=== PATIENT | female | born 1945 | race Caucasian/White ===

== ENCOUNTER 2017-03-14 16:14 | Inpatient (IN) | payer MEDICARE, BC ==
[~2017-03-14] VITALS: Ht 160 cm; Wt 58.5 kg
--- NOTE | 2017-03-14 15:14 | NUR ---
RECEIVED PATIENT FROM ER VIA GURNEY WITH VANCOMYCIN 1G INFUSING. PT IS ALERT, RESPONSIVE, IN NO ACUTE DISTRESS. PT IS ADMITTED TO TELE UNDER THE CARE OF DR. EID. BELONGING LIST DONE. ADMISSION PROCESS AND CARE PLAN INITIATED. NEW ADMISSION ORDERS DONE BY DR. EID. SAFETY MEASURES IN PLACE, BED ALARM ON. WILL CONTINUE TO MONITOR. Addendum: 03/15/17 at 0220 by OLAYINKA LANIER RN CORRECTION: TIME SHOULD BE 21:15 NOT 15:14
[2017-03-14] MEDS ORDERED: LUTE6CAP PO (17:06)
[2017-03-14] MEDS ORDERED: DONE10TA44 PO (17:06)
[2017-03-14] MEDS ORDERED: NAPR500T3 PO (17:06)
[2017-03-14] MEDS ORDERED: LISI-607 PO (17:06)
[2017-03-14] MEDS ORDERED: ALEN70TA45 PO (17:06)
[2017-03-14] MEDS ORDERED: CHOL100045 PO (17:06)
[2017-03-14] MEDS ORDERED: CALC500T55 PO (17:06)
[2017-03-14] MEDS ORDERED: ASPI81TA44 PO (17:06)
[2017-03-14] MEDS ORDERED: SIMV40TA5 PO (17:06)
[2017-03-14] MEDS ORDERED: LEVO75TA7 PO (17:06)
[2017-03-14] MEDS ORDERED: FLUO40CA49 PO (17:06)
[2017-03-14] MEDS ORDERED: CARB-93 PO (17:06)
--- NOTE | 2017-03-14 17:24 | NUR ---
71 years old female from long term presents to er c/o multiple falls, gen weakness denies pain.
[2017-03-14] MEDS ORDERED: ACETAMINOPHEN 650 MG/20.3 ML LIQUID UDC PO ONE (17:29)
[2017-03-14 17:59] LABS: BASOPHILS # (AUTO) 0.2 K/uL (0.0-8.0); BASOPHILS % (AUTO) 2.6 % (0.0-2.0); EOSINOPHILS % (AUTO) 0.5 % (0.0-7.0); HEMATOCRIT 38.2 % (37-47); HEMOGLOBIN 12.8 G/DL (12.0-16.0); LYMPHOCYTES # (AUTO) 0.6 K/UL (0.8-4.8); LYMPHOCYTES % (AUTO) 9.5 % (20.5-51.5); MEAN CORPUSCULAR HEMOGLOBIN 33.6 UUG (27.0-31.0); MEAN CORPUSCULAR HGB CONC 34 g/dL (32.0-37.0); MEAN CORPUSCULAR VOLUME 100.3 FL (81.0-99.0); MONOCYTES # (AUTO) 0.6 K/UL (0.1-1.30); MONOCYTES % (AUTO) 8.8 % (0.0-11.0); NEUTROPHILS # (AUTO) 4.9 K/UL (1.8-8.9); NEUTROPHILS % (AUTO) 78.6 % (38.5-71.5); PLATELET COUNT (AUTO) 154 K/UL (150-450); RED BLOOD CELL COUNT(AUTO) 3.81 MIL/UL (4.2-5.4); WHITE BLOOD COUNT (AUTO) 6.3 K/UL (4.0-11.2)
[2017-03-14] MEDS ORDERED: ACETAMINOPHEN 650 MG/20.3 ML LIQUID UDC ONE (18:00)
[2017-03-14 18:01] LABS: CARBON DIOXIDE 29 mmol/L (21-32); CHLORIDE 98 mmol/L (98-107); CREATININE 0.9 mg/dL (0.6-1.3); GLUCOSE 93 mg/dL (74-106); POTASSIUM 3.9 mmol/L (3.5-5.1); UREA NITROGEN, BLOOD 28 mg/dL (7-18)
[2017-03-14 18:07] LABS: ALANINE AMINOTRANSFERASE 12 U/L (14-59); ALKALINE PHOSPHATASE 51 U/L (50-136); ASPARTATE AMINOTRANSFERASE 34 U/L (15-37); BILIRUBIN,TOTAL 0.9 mg/dL (0.2-1.0); CREATINE KINASE, TOTAL 276 U/L (26-192); TOTAL PROTEIN, SERUM 5.8 g/dL (6.4-8.2)
--- NOTE | 2017-03-14 18:44 | NUR ---
pt returns to x-ray no acute changes.
[2017-03-14] MEDS ORDERED: VANCOMYCIN IV 1,000 MG in IV DEXTROSE 5% 250 ML IV ONE (19:45)
[2017-03-14] MEDS ORDERED: LEVOFLOXACIN 750MG/D5W 750 MG in PREMIXED 1 EACH IV SCH (19:45)
[2017-03-14] MEDS ORDERED: PIPERACILLIN/TAZO 4.5 GM VIAL IV ONE (20:01)
[2017-03-14] MEDS ORDERED: LEVOFLOXACIN 750MG/D5W 150 ML IV ONE (20:02)
[2017-03-14] MEDS ORDERED: VANCOMYCIN IV 200 ML ONE (20:02)
--- NOTE | 2017-03-14 20:02 | NUR ---
Wilfrido Carrero MAGAZINE EDITOR into eval Patient
[2017-03-14 20:04] LABS: *BILIRUBIN,URIN NEGATIVE (NEGATIVE); *BLOOD, URINE NEGATIVE (NEGATIVE); *CLARITY,URINE CLEAR (CLEAR); *COLOR,URINE YELLOW (YELLOW); *KETONES,URINE 1+ (NEGATIVE); *PROTEIN,URINE TRACE (NEGATIVE); *UROBILINOGEN,URINE 0.2 E.U./dl (NORMAL); LEUKOCYTE ESTERASE ,URINE NEGATIVE (NEGATIVE); NITRITE, URINE NEGATIVE (NEGATIVE); UGLUCOSE NEGATIVE (NEGATIVE)
[2017-03-14 20:12] LABS: BACTERIA,URINE NONE SEEN /HPF (NONE SEEN); RBC,URINE 0-3 /HPF (0-3); WBC,URINE 0-3 /HPF (0-3)
[2017-03-14 20:13] LABS: SQUAMOUS EPITHELIAL CELL,UR FEW /HPF (NONE SEEN)
[2017-03-14] MEDS: PIPERACILLIN SODIUM/TAZOBACTAM 4.5 G in IV DEXTROSE 5% 50 ML IV SCH ×2 (20:13→22:00)
[2017-03-14] MEDS ORDERED: IV NS 1000 ML 1,000 ML IV PRN (20:24)
[2017-03-14] MEDS ORDERED: NAPROXEN 500 MG TABLET PO PRN (20:30)
[2017-03-14] MEDS ORDERED: Z GUARD REMEDY PASTE 57 GM TUBE TOP PRN (20:30)
[2017-03-14] MEDS ORDERED: ACETAMINOPHEN 325 MG TABLET PO PRN (20:30)
[2017-03-14] MEDS ORDERED: HYDROCODONE/APAP 5-325MG TABLET PO PRN (20:30)
[2017-03-14] MEDS ORDERED: ONDANSETRON 4 MG/2 ML VIAL IV PRN (20:30)
[2017-03-14] MEDS ORDERED: MAGNESIUM HYDROXIDE 30 ML LIQUID UDC PO PRN (20:30)
[2017-03-14] MEDS ORDERED: LEVOFLOXACIN 500 MG/D5W 500 MG in PREMIXED 1 EACH IV SCH (20:30)
--- NOTE | 2017-03-14 21:07 | NUR ---
transfered to [address] [place] [address] via [facility]
--- NOTE | 2017-03-14 21:15 | NUR ---
RECEIVED PATIENT FROM ER VIA GURNEY WITH VANCOMYCIN 1G INFUSING. PT IS ALERT, RESPONSIVE, IN NO ACUTE DISTRESS. PT IS ADMITTED TO TELE UNDER THE CARE OF DR. EID. BELONGING LIST DONE. ADMISSION PROCESS AND CARE PLAN INITIATED. NEW ADMISSION ORDERS DONE BY DR. EID. SAFETY MEASURES IN PLACE, BED ALARM ON. WILL CONTINUE TO MONITOR.
[2017-03-14] MEDS: PIPERACILLIN/TAZOBACTAM/D5W 3.375 G in PREMIXED 1 EACH IV SCH (22:00)
--- NOTE | 2017-03-14 22:00 | NUR ---
Non admin due to antibiotic IV medications already given in ER. Levaquine 750mg, Vancomycin 1 gram, Zosyn 4.5mg given in ER between [id number]. Patient shows no s/s of adverse reaction.
[2017-03-14 22:07] VITALS: BP 135/63
[2017-03-15] VITALS: BP 125/41
[2017-03-15] MEDS ORDERED: PIPERACILLIN/TAZOBACTAM/D5W 50 ML IV ONE (02:43)
[2017-03-15 04:00] VITALS: BP 135/75
[2017-03-15] MEDS: PIPERACILLIN/TAZOBACTAM/D5W 3.375 G in PREMIXED 1 EACH IV SCH ×2 (05:11→13:22)
[2017-03-15] MEDS: PIPERACILLIN SODIUM/TAZOBACTAM 4.5 G in IV DEXTROSE 5% 50 ML IV SCH (05:13)
--- NOTE | 2017-03-15 05:14 | NUR ---
NON ADMIN: DUPLICATE ORDER OF ZOSYN 3.375G AND 4.5G
--- NOTE | 2017-03-15 06:00 | NUR ---
PT SLEPT INTERMITTENTLY, IN NO ACUTE DISTRESS, NO C/O OF PAIN/DISCOMFORT, NO SOB OR CHEST PAIN. PT'S TEMP AT 99F, COOLING MEASURES DONE. ANTIBIOTICS IV ADMINISTERED ORDERED, NO ADVERSE REACTION NOTED. PT KEPT CLEAN/DRY, REPOSITIONED FOR COMFORT. BED ALARM ON, WILL CONTINUE TO MONITOR. Addendum: 03/15/17 at 0702 by OLAYINKA LANIER RN Add: Pt is on tele sinus rhythm. Oral care provided.
[2017-03-15 06:54] LABS: BASOPHILS % (AUTO) 0.8 % (0.0-2.0); EOSINOPHILS # (AUTO) 0.1 K/uL (0.0-0.7); EOSINOPHILS % (AUTO) 1.3 % (0.0-7.0); HEMATOCRIT 36.6 % (31.2-41.9); HEMOGLOBIN 12.5 g/dL (10.9-14.3); LYMPHOCYTES # (AUTO) 0.5 K/uL (20.0-40.0); LYMPHOCYTES % (AUTO) 8.8 % (20.5-51.5); MEAN CORPUSCULAR HEMOGLOBIN 34.2 uug (24.7-32.8); MEAN CORPUSCULAR HGB CONC 34 g/dL (32.3-35.6); MONOCYTES # (AUTO) 0.5 K/uL (2.0-10.0); MONOCYTES % (AUTO) 10.2 % (0.0-11.0); NEUTROPHILS # (AUTO) 4.1 K/uL (1.8-8.9); NEUTROPHILS % (AUTO) 78.9 % (38.5-71.5); PLATELET COUNT (AUTO) 201 K/uL (179-408); RED BLOOD CELL COUNT(AUTO) 3.67 MIL/uL (3.63-4.92); WHITE BLOOD COUNT (AUTO) 5.2 K/uL (3.8-11.8)
[2017-03-15 07:17] LABS: CARBON DIOXIDE 26 mmol/L (21-32); CHLORIDE 103 mmol/L (98-107); CHOLESTEROL 140 mg/dL (<200); CREATININE 0.8 mg/dL (0.6-1.3); GLUCOSE 86 mg/dL (74-106); HDL CHOLESTEROL 83 mg/dL (40-60); MAGNESIUM 1.8 mg/dL (1.8-2.4); PHOSPHOROUS 3.5 mg/dL (2.5-4.9); POTASSIUM 3.7 mmol/L (3.5-5.1); TRIGLYCERIDES 32 MG/DL (30-150); UREA NITROGEN, BLOOD 17 mg/dL (7-18)
[2017-03-15 07:27] LABS: THYROID STIMULATING HORMONE 3.901 mIU/mL (0.358-3.740)
--- NOTE | 2017-03-15 07:45 | NUR ---
Received patient A and O x 4, No acute distress noted. No complaints of pain/discomfort. IV NS at 60 ml/hr on right AC, intact and flowing well. All comfort measures provided. Call light within reach. Will continue to monitor closely
[2017-03-15] MEDS: LISINOPRIL 5 MG TABLET PO SCH (08:29)
[2017-03-15] MEDS: CALCIUM CARBONATE 500 MG TABLET PO SCH ×2 (08:29→17:41)
[2017-03-15] MEDS: ASPIRIN EC 81 MG TABLET.DR PO SCH (08:29)
[2017-03-15] MEDS ORDERED: LUTEIN 6 MG PO SCH (09:00)
[2017-03-15] MEDS: FLUOXETINE HCL 20 MG CAPSULE PO SCH (10:39)
[2017-03-15] MEDS: LEVOTHYROXINE SODIUM 75 MCG TABLET PO SCH (10:39)
[2017-03-15] MEDS: CARBIDOPA/LEVODOPA 25-100MG TABLET PO SCH ×3 (10:39→17:41)
[2017-03-15] MEDS: CHOLECALCIFEROL 1,000 UNIT TABLET PO SCH (11:37)
[2017-03-15 11:56] VITALS: BP 106/50
[2017-03-15] MEDS ORDERED: DONEPEZIL 10 MG TABLET PO SCH (13:33)
[2017-03-15 15:53] VITALS: BP 95/48
[2017-03-15] MEDS: IV NS 1000 ML 1,000 ML IV PRN ×2 (18:26)
[2017-03-15 20:19] VITALS: BP 100/46
[2017-03-15] MEDS: SIMVASTATIN 40 MG TABLET PO SCH (21:52)
[2017-03-16 00:32] VITALS: BP 135/64
[2017-03-16 04:00] VITALS: BP 122/66
--- NOTE | 2017-03-16 05:52 | NUR ---
Patient slept well, in no acute distress. Pt no c/o of SOB, no cough/wheezing, discomfort. VS stable, afebrile. IVF infusing, no infiltration noted. Pt kept clean/dry, repositioned for comfort. All needs attended and met. Bed alarm on. Will continue to monitor.
[2017-03-16] MEDS: LEVOTHYROXINE SODIUM 75 MCG TABLET PO SCH (06:36)
--- NOTE | 2017-03-16 08:00 | NUR ---
awake alert and oriented, denies of pain, no shortness of breath, states slept well last night, tele SR 68, discussed plan of cre- verbalized understanding, safety measures maintained, call light within reach breakfast tray served
[2017-03-16] MEDS: LISINOPRIL 5 MG TABLET PO SCH (08:38)
[2017-03-16] MEDS: ASPIRIN EC 81 MG TABLET.DR PO SCH (08:39)
[2017-03-16] MEDS: FLUOXETINE HCL 20 MG CAPSULE PO SCH (08:39)
[2017-03-16] MEDS: CALCIUM CARBONATE 500 MG TABLET PO SCH ×2 (08:39→16:29)
[2017-03-16] MEDS: CARBIDOPA/LEVODOPA 25-100MG TABLET PO SCH ×3 (08:39→16:29)
[2017-03-16] MEDS: CHOLECALCIFEROL 1,000 UNIT TABLET PO SCH (08:39)
--- NOTE | 2017-03-16 10:30 | NUR ---
ambulated in the hallway with PT- see notes
--- NOTE | 2017-03-16 11:15 | NUR ---
seen by Dr Lugo
[2017-03-16 11:36] VITALS: BP 109/52
--- NOTE | 2017-03-16 12:00 | NUR ---
seen by speech therapist
[2017-03-16] MEDS: IV NS 1000 ML 1,000 ML IV PRN (12:53)
[2017-03-16 15:28] VITALS: BP 104/47
--- NOTE | 2017-03-16 18:28 | NUR ---
resting in bed, kept clean and dry at all times, all needs attended and met
[2017-03-16 20:11] VITALS: BP 100/52
[2017-03-16] MEDS ORDERED: DONEPEZIL 10 MG TABLET PO SCH (21:00)
[2017-03-16] MEDS: SIMVASTATIN 40 MG TABLET PO SCH (21:06)
[2017-03-17] MEDS: IV NS 1000 ML 1,000 ML IV PRN (06:00)
[2017-03-17] MEDS: LEVOTHYROXINE SODIUM 75 MCG TABLET PO SCH (06:00)
--- NOTE | 2017-03-17 06:00 | NUR ---
Patient slept well, no distress, no SOB. No significant change of condition throughout the shift. VS stable, pt remains afebrile. Pt kept clean/dry. Call light within reach. Will continue to monitor.
[2017-03-17 06:24] VITALS: BP 120/46
--- NOTE | 2017-03-17 07:15 | NUR ---
RECEIVED REPORT FROM PARAPROFESSIONAL AIDE NURSE, PATIENT IN BED AWAKE, NO EVIDENCE OF DISTRESS NOTED, BED IN LOW POSITION, SIDE RAILS UP X2. IV NOTED TO BE FOUND INFILTRATED AND LEAKING ON BED.
[2017-03-17] MEDS: FLUOXETINE HCL 20 MG CAPSULE PO SCH (08:44)
[2017-03-17] MEDS: ASPIRIN EC 81 MG TABLET.DR PO SCH (08:44)
[2017-03-17] MEDS: LISINOPRIL 5 MG TABLET PO SCH (08:44)
[2017-03-17] MEDS: CALCIUM CARBONATE 500 MG TABLET PO SCH ×2 (08:44→17:29)
[2017-03-17] MEDS: CHOLECALCIFEROL 1,000 UNIT TABLET PO SCH (08:44)
[2017-03-17] MEDS: CARBIDOPA/LEVODOPA 25-100MG TABLET PO SCH ×3 (08:44→17:30)
[2017-03-17 08:59] VITALS: BP 149/106
[2017-03-17 11:55] VITALS: BP 131/63
[2017-03-17 15:56] VITALS: BP 124/67
--- NOTE | 2017-03-17 17:55 | NUR ---
PATIENT WAS DISCHARGED TO ARU, ALL BELONGINGS ACCOUNTED FOR, DISCHARGE TEACHING PERFORMED AND PATIENT'S [facility] CONTACTED VIA PHONE TO INFORM HER OF HER DISCHARGE FROM THE UNIT. REPORT CALLED TO
[2017-03-21] MEDS ORDERED: ALENDRONATE SODIUM 70 MG TABLET PO SCH (06:00)
== END 2017-03-17 18:00 | DRG 205 ==
LOC: ER 16:15 → TELE 21:01 → MED 03-16 10:05
PROVIDERS: ADMIT Nurse Practitioner Acute Care; ATTEND Nurse Practitioner Acute Care
DX: J98.11 Atelectasis (principal); G93.40 Encephalopathy, unspecified; N17.0 Acute kidney failure with tubular necrosis; E44.0 Moderate protein-calorie malnutrition; E87.1 Hypo-osmolality and hyponatremia; W19.XXXA Unspecified fall, initial encounter; S50.11XA Contusion of right forearm, initial encounter; G20 Parkinson's disease; E03.9 Hypothyroidism, unspecified; Y92.129 Unspecified place in nursing home as the place of occurrence of the external cause; E78.5 Hyperlipidemia, unspecified; Z68.22 Body mass index [BMI] 22.0-22.9, adult; Z66 Do not resuscitate; R26.2 Difficulty in walking, not elsewhere classified; E83.51 Hypocalcemia; E86.1 Hypovolemia; R29.6 Repeated falls; S29.012A Strain of muscle and tendon of back wall of thorax, initial encounter; S39.012A Strain of muscle, fascia and tendon of lower back, initial encounter; Z79.82 Long term (current) use of aspirin; Z79.899 Other long term (current) drug therapy; M19.90 Unspecified osteoarthritis, unspecified site
CPT/HCPCS: 36415; 70030-TC; 71010; 72072; 72100; 73090; 73100; 83735; 84100; 84443; 85025; 85610; 87040; 87086; 92526; 92610; 93005; 93307; 97116; 97530; A4663; J1956; J2543; J3370; J7030; J7060

== ENCOUNTER 2017-03-17 14:43 | Inpatient (IN) | payer MEDICARE, BC ==
[~2017-03-17] VITALS: Ht 160 cm; Wt 59.0 kg
[~2017-03-17 14:43] MED LIST: ALEN70TA45 PO; ASPI81TA44 PO; CALC500T55 PO; CARB-93 PO; CHOL100045 PO; DONE10TA44 PO; FLUO40CA49 PO; LEVO75TA7 PO; LISI-607 PO; LUTE6CAP PO; NAPR500T3 PO; SIMV40TA5 PO
[2017-03-17 19:30] VITALS: BP 118/73
[2017-03-17] MEDS ORDERED: NAPROXEN 500 MG TABLET PO PRN (19:30)
--- NOTE | 2017-03-17 20:00 | NUR ---
Received new admit pt, awake, alert and oriented x3. Able to make needs known. No acute distress noted. No complaints of pain or discomfort. Breathing even and unlabored with normal respirations. Pertinent assessments done. Pictures taken and placed on chart. Med recon done. Safety and fall precautions observed and maintained. Call light placed within reach. All needs attended. will continue to monitor.
[2017-03-17] MEDS: CHOLECALCIFEROL 1,000 UNIT TABLET PO SCH (20:40)
[2017-03-17] MEDS: CALCIUM CARBONATE 500 MG TABLET PO SCH (20:40)
[2017-03-17] MEDS: DONEPEZIL 10 MG TABLET PO SCH (20:41)
[2017-03-17] MEDS: SIMVASTATIN 40 MG TABLET PO SCH (20:41)
[2017-03-17 20:54] VITALS: BP 118/73
[2017-03-17] MEDS ORDERED: Z GUARD REMEDY PASTE 57 GM TUBE TOP PRN (21:30)
--- NOTE | 2017-03-18 05:23 | NUR ---
Patient slept comfortably throughout the shift. No apparent distress noted. No complaints of pain. Call light within reach. Incontinent care rendered. All needs attended.
[2017-03-18] MEDS: LEVOTHYROXINE SODIUM 75 MCG TABLET PO SCH (06:01)
--- NOTE | 2017-03-18 07:00 | NUR ---
Received pt aa/ox3, no acute distress noted. pt denies any pain or discomfort. Right FA peripheral IV intact and patent, no s/s of infection noted. plan of care discussed. Call light and personal belongings within reach. Bed kept low/locked position. Bed alarm on for safety.
[2017-03-18] MEDS: CHOLECALCIFEROL 1,000 UNIT TABLET PO SCH ×2 (08:51→17:20)
[2017-03-18] MEDS: FLUOXETINE HCL 20 MG CAPSULE PO SCH (08:51)
[2017-03-18] MEDS: ASPIRIN EC 81 MG TABLET.DR PO SCH (08:51)
[2017-03-18] MEDS: CALCIUM CARBONATE 500 MG TABLET PO SCH ×2 (08:52→17:20)
[2017-03-18] MEDS: LISINOPRIL 5 MG TABLET PO SCH (08:52)
[2017-03-18] MEDS: CARBIDOPA/LEVODOPA 25-100MG TABLET PO SCH ×3 (08:52→17:20)
[2017-03-18 08:53] VITALS: BP 160/79
[2017-03-18] MEDS ORDERED: LUTEIN 6 MG PO SCH (09:00)
--- NOTE | 2017-03-18 17:48 | NUR ---
NO ACUTE CHANGES NOTED, PT WAS ABLE TO PARTICIPATE WITH THERAPY, CALL LIGHT KEPT WITHIN REACH. PT ENCOURAGED TO USE CALL LIGHT AND CALL FOR ASSISTANCE. PT GOT UP TO THE BATHROOM BY HERSELF X1 TODAY, PT ENCOURAGED TO CALL FOR ASSISTANCE.
--- NOTE | 2017-03-18 20:30 | NUR ---
Received pt on bed alert, awake and oriented x3. Able to make needs known. No signs/symptoms of distress noted. No complaints of pain during this time. Due meds given as ordered, tolerated well. No signs/symptoms of aspiration noted. Vital signs stable. Kept clean, dry and comfortable. Call light placed within reach. All needs anticipated. Will continue to monitor
[2017-03-18] MEDS: DONEPEZIL 10 MG TABLET PO SCH (21:00)
[2017-03-18] MEDS: SIMVASTATIN 40 MG TABLET PO SCH (21:00)
[2017-03-18 21:14] VITALS: BP 117/74
--- NOTE | 2017-03-19 05:51 | NUR ---
Pt slept well during the shift. No untoward signs/symptoms was noted. No complaints of pain or discomfort. Due meds given as ordered, tolerated well. Kept clean, dry and comfortable. Call light within reach. All needs attended.
[2017-03-19] MEDS: LEVOTHYROXINE SODIUM 75 MCG TABLET PO SCH (06:22)
[2017-03-19] MEDS: CARBIDOPA/LEVODOPA 25-100MG TABLET PO SCH ×3 (09:00→17:07)
[2017-03-19] MEDS: FLUOXETINE HCL 20 MG CAPSULE PO SCH (09:01)
[2017-03-19] MEDS: ASPIRIN EC 81 MG TABLET.DR PO SCH (09:01)
[2017-03-19] MEDS: CALCIUM CARBONATE 500 MG TABLET PO SCH ×2 (09:01→17:07)
[2017-03-19] MEDS: CHOLECALCIFEROL 1,000 UNIT TABLET PO SCH ×2 (09:01→17:07)
[2017-03-19] MEDS: LISINOPRIL 5 MG TABLET PO SCH (09:03)
[2017-03-19 09:52] VITALS: BP 155/74
--- NOTE | 2017-03-19 10:05 | NUR ---
patient noted laying in bed, assisted to restroom at this time, no complaints of pain, no signs distress noted, call light in reach.
[2017-03-19] MEDS: DONEPEZIL 10 MG TABLET PO SCH (20:24)
[2017-03-19] MEDS: SIMVASTATIN 40 MG TABLET PO SCH (20:24)
--- NOTE | 2017-03-19 20:45 | NUR ---
awake upon rounds. aaox4 bourne's oob in wheelchair with assist. voiding well. needs attended. tolerrated po meds well. will monitor patient. fall precautions maintained. call shields within reach. no acute distress. denies any pain nor any discomfort.
[2017-03-19 21:28] VITALS: BP 117/66
[2017-03-20] MEDS: LEVOTHYROXINE SODIUM 75 MCG TABLET PO SCH (06:17)
--- NOTE | 2017-03-20 06:59 | NUR ---
quiet night. incontinent of urine x2 kept clean and dry. VSS. Needs attended. will monitor patient. no complaints presented during shift.
[2017-03-20 07:05] VITALS: BP 171/96
--- NOTE | 2017-03-20 07:57 | NUR ---
PATIENT NOTED IN GYM FOR THERAPY, NO COMPLAINTS OF PAIN AT THIS TIME, NO SIGNS OF DISTRESS, ABLE TO MAKE NEEDS KNOWN, ALL NEEDS MET AT THIS TIME
[2017-03-20] MEDS: FLUOXETINE HCL 20 MG CAPSULE PO SCH (09:16)
[2017-03-20] MEDS: CALCIUM CARBONATE 500 MG TABLET PO SCH ×2 (09:16→17:44)
[2017-03-20] MEDS: CHOLECALCIFEROL 1,000 UNIT TABLET PO SCH ×2 (09:16→17:44)
[2017-03-20] MEDS: CARBIDOPA/LEVODOPA 25-100MG TABLET PO SCH ×3 (09:16→17:44)
[2017-03-20] MEDS: LISINOPRIL 5 MG TABLET PO SCH (09:17)
[2017-03-20] MEDS: ASPIRIN EC 81 MG TABLET.DR PO SCH (09:17)
[2017-03-20 19:30] VITALS: BP 119/71
--- NOTE | 2017-03-20 20:27 | NUR ---
Received pt resting comfortably in bed. AAO X4. Room air. IV 20 gauge right forearm hep lock, patent and intact. No acute distress noted. No c/o pain or discomfort. Safety measures maintained. Call light within reach. Will continue to monitor.
[2017-03-20] MEDS: SIMVASTATIN 40 MG TABLET PO SCH (21:47)
[2017-03-20] MEDS: DONEPEZIL 10 MG TABLET PO SCH (21:47)
--- NOTE | 2017-03-21 05:30 | NUR ---
Pt slept comfortably t/o the night. Vital signs stable. Compliant with medications. All needs attended to promptly. Will endorse to day shift RN. Continue to monitor.
[2017-03-21] MEDS ORDERED: ALENDRONATE SODIUM 70 MG TABLET PO SCH (06:00)
[2017-03-21] MEDS: LEVOTHYROXINE SODIUM 75 MCG TABLET PO SCH (06:22)
[2017-03-21 07:03] VITALS: BP 137/83
[2017-03-21] MEDS: ASPIRIN EC 81 MG TABLET.DR PO SCH (08:09)
[2017-03-21] MEDS: FLUOXETINE HCL 20 MG CAPSULE PO SCH (08:09)
[2017-03-21] MEDS: CALCIUM CARBONATE 500 MG TABLET PO SCH ×2 (08:09→17:25)
[2017-03-21] MEDS: CHOLECALCIFEROL 1,000 UNIT TABLET PO SCH ×2 (08:09→17:25)
[2017-03-21] MEDS: LISINOPRIL 5 MG TABLET PO SCH (08:10)
[2017-03-21] MEDS: CARBIDOPA/LEVODOPA 25-100MG TABLET PO SCH ×3 (08:10→17:25)
[2017-03-21 19:30] VITALS: BP 127/70
--- NOTE | 2017-03-21 20:02 | NUR ---
resting comfortably in bed. no acute distress noted. needs attended. right arm heplock #20gauge intact flushed and patent. incontinent of bowel and bladder. no BM this shift. kept comfortable.fall precautions maintained. call shields within reach. siderails up for safety.
[2017-03-21 20:16] LABS: BASOPHILS % (AUTO) 1.1 % (0.0-2.0); EOSINOPHILS % (AUTO) 0.4 % (0.0-7.0); HEMATOCRIT 38.1 % (31.2-41.9); HEMOGLOBIN 13.4 g/dL (10.9-14.3); LYMPHOCYTES # (AUTO) 0.6 K/uL (20.0-40.0); LYMPHOCYTES % (AUTO) 13.7 % (20.5-51.5); MEAN CORPUSCULAR HEMOGLOBIN 34.5 uug (24.7-32.8); MEAN CORPUSCULAR HGB CONC 35 g/dL (32.3-35.6); MEAN CORPUSCULAR VOLUME 98.2 fL (75.5-95.3); MONOCYTES # (AUTO) 0.5 K/uL (2.0-10.0); MONOCYTES % (AUTO) 11.8 % (0.0-11.0); NEUTROPHILS # (AUTO) 3.2 K/uL (1.8-8.9); PLATELET COUNT (AUTO) 250 K/uL (179-408); RED BLOOD CELL COUNT(AUTO) 3.88 MIL/uL (3.63-4.92); WHITE BLOOD COUNT (AUTO) 4.4 K/uL (3.8-11.8)
[2017-03-21 20:20] LABS: CARBON DIOXIDE 31 mmol/L (21-32); CHLORIDE 99 mmol/L (98-107); CREATININE 0.8 mg/dL (0.6-1.3); GLUCOSE 97 mg/dL (74-106); POTASSIUM 3.8 mmol/L (3.5-5.1); UREA NITROGEN, BLOOD 25 mg/dL (7-18)
[2017-03-21] MEDS: SIMVASTATIN 40 MG TABLET PO SCH (20:31)
[2017-03-21] MEDS: DONEPEZIL 10 MG TABLET PO SCH (20:31)
[2017-03-21 20:52] LABS: *BILIRUBIN,URIN NEGATIVE (NEGATIVE); *BLOOD, URINE NEGATIVE (NEGATIVE); *CLARITY,URINE SLIGHTLY CLOUDY (CLEAR); *COLOR,URINE YELLOW (YELLOW); *KETONES,URINE TRACE (NEGATIVE); *PROTEIN,URINE TRACE (NEGATIVE); *UROBILINOGEN,URINE 0.2 E.U./dl (NORMAL); LEUKOCYTE ESTERASE ,URINE NEGATIVE (NEGATIVE); NITRITE, URINE NEGATIVE (NEGATIVE); PH,URINE 7.5 (5.0-8.0); UGLUCOSE NEGATIVE (NEGATIVE)
[2017-03-21 20:55] LABS: BACTERIA,URINE NONE SEEN /HPF (NONE SEEN); RBC,URINE 0-3 /HPF (0-3); SQUAMOUS EPITHELIAL CELL,UR FEW /HPF (NONE SEEN); URINE AMORPHOUS URATE MANY /HPF; WBC,URINE 0-3 /HPF (0-3)
--- NOTE | 2017-03-22 04:51 | NUR ---
quiet night. slept well. incontinent of bowel and bladder. kept clean and dry. needs attended. tolerated po meds well. no complaints presented during shift.
[2017-03-22] MEDS: LEVOTHYROXINE SODIUM 75 MCG TABLET PO SCH (06:05)
[2017-03-22 07:03] VITALS: BP 102/57
--- NOTE | 2017-03-22 08:01 | NUR ---
patient noted sitting up in bed watching tv, no complaints of pain, no signs of distress, call light in reach, x 2 siderails, bed locked and in lowest position
[2017-03-22] MEDS: ASPIRIN EC 81 MG TABLET.DR PO SCH (08:45)
[2017-03-22] MEDS: CARBIDOPA/LEVODOPA 25-100MG TABLET PO SCH ×3 (08:46→17:40)
[2017-03-22] MEDS: FLUOXETINE HCL 20 MG CAPSULE PO SCH (08:46)
[2017-03-22] MEDS: LISINOPRIL 5 MG TABLET PO SCH (08:46)
[2017-03-22] MEDS: CALCIUM CARBONATE 500 MG TABLET PO SCH ×2 (08:46→17:41)
[2017-03-22] MEDS: CHOLECALCIFEROL 1,000 UNIT TABLET PO SCH ×2 (08:46→17:41)
--- NOTE | 2017-03-22 15:33 | NUR ---
PATIENT TOOK LEAVE FOR SCHEDULED APPOINTMENT, LEFT FACILITY IN PRIVATE CAR, LEFT FACILITY AT 1200 AND RETURNED TO FACILITY AT 1445. 1300 [facility] HELD TILL PATIENT ARRIVAL
--- NOTE | 2017-03-22 20:06 | NUR ---
Patient resting comfortably in bed and watching TV. AAO x4. As per endorsement, pt is on thin liquids now. Safety measures maintained. Call light and personal belongings within reach. Will continue to monitor.
[2017-03-22 20:24] VITALS: BP 124/71
[2017-03-22] MEDS: DONEPEZIL 10 MG TABLET PO SCH (21:46)
[2017-03-22] MEDS: SIMVASTATIN 40 MG TABLET PO SCH (21:46)
[2017-03-23] MEDS: LEVOTHYROXINE SODIUM 75 MCG TABLET PO SCH (06:32)
--- NOTE | 2017-03-23 06:53 | NUR ---
Patient slept comfortably t/o the night. No c/o pain or discomfort. All needs attended to promptly. Meds given per MD's order. Will endorse to day shift RN. Continue to monitor.
[2017-03-23 08:00] VITALS: BP 139/75
[2017-03-23] MEDS: FLUOXETINE HCL 20 MG CAPSULE PO SCH (09:01)
[2017-03-23] MEDS: CHOLECALCIFEROL 1,000 UNIT TABLET PO SCH ×2 (09:01→17:25)
[2017-03-23] MEDS: CARBIDOPA/LEVODOPA 25-100MG TABLET PO SCH ×3 (09:01→17:25)
[2017-03-23] MEDS: ASPIRIN EC 81 MG TABLET.DR PO SCH (09:01)
[2017-03-23] MEDS: CALCIUM CARBONATE 500 MG TABLET PO SCH ×2 (09:02→17:25)
[2017-03-23] MEDS: LISINOPRIL 5 MG TABLET PO SCH (09:02)
--- NOTE | 2017-03-23 14:30 | NUR ---
INTERDISCIPLINARY TEAM CONFERENCE
--- NOTE | 2017-03-23 16:00 | NUR ---
pt seen on rounding. pt alert and oriented. pt had delayed speech but was able to explain needs. pt took meds whole. vitals stable. afebrile. able to tolerate room air. pt continues to take pills whole without aspiration. will continue to monitor.
--- NOTE | 2017-03-23 19:23 | NUR ---
pt assisted throuhgout the day. bed alarm on. pt continued to take pills whole with thin liquids. pt had diet changed. aspiration precautions implented. no signs of aspirations. pt took meds as precribed. no pain noted. no injuries noted. pt continues to be alert and oriented. no loc changes. pt able to use call light and call for help. pt had no therapy today. pt ambulated with rangeland management specialist and walked around the unit. will endorse to case finisher nurse.
--- NOTE | 2017-03-23 19:41 | NUR ---
received pt on bed awake, alert and oriented x3. No acute distress noted. No complaints of pain or discomfort. Breathing even and unlabored with normal respirations. Safety, fall and aspiration precaution observed and maintained. Call light within reach. All needs attended.
[2017-03-23 20:12] VITALS: BP 121/68
[2017-03-23] MEDS: SIMVASTATIN 40 MG TABLET PO SCH (20:47)
[2017-03-23] MEDS: DONEPEZIL 10 MG TABLET PO SCH (20:47)
--- NOTE | 2017-03-24 05:39 | NUR ---
Patient slept well comfortably during the shift. In no apparent distress. No complaints of pain or discomfort. Assisted to the bathroom as needed. kept clean, dry and comfortable. Call light within reach. All needs attended.
[2017-03-24] MEDS: LEVOTHYROXINE SODIUM 75 MCG TABLET PO SCH (06:20)
[2017-03-24 07:30] VITALS: BP 135/84
[2017-03-24] MEDS: CARBIDOPA/LEVODOPA 25-100MG TABLET PO SCH ×3 (10:03→17:17)
[2017-03-24] MEDS: FLUOXETINE HCL 20 MG CAPSULE PO SCH (10:05)
[2017-03-24] MEDS: CALCIUM CARBONATE 500 MG TABLET PO SCH ×2 (10:06→17:18)
[2017-03-24] MEDS: LISINOPRIL 5 MG TABLET PO SCH (10:07)
[2017-03-24] MEDS: CHOLECALCIFEROL 1,000 UNIT TABLET PO SCH ×2 (10:07→17:18)
[2017-03-24] MEDS: ASPIRIN EC 81 MG TABLET.DR PO SCH (10:08)
--- NOTE | 2017-03-24 10:10 | NUR ---
SBAR report received, board updated. Pt v/s taken and WNL. Pt alert and oriented x3 requiring extra time to respond. Pt assessed, no c/o pain or SOB noted. Pt compliant with all routine morning medication administration taking each PO pill whole and one at a time. Today's plan of care discussed, while actively participating in Speech Therapy, anticipating cooperation with PT scheduled for later this afternoon. All safety and comfort measures met. Will continue to monitor.
--- NOTE | 2017-03-24 19:08 | NUR ---
Pt assisted to bathroom for voiding using walker to ambulate. Pt brushed her teeth and assisted back to bed, sitting comfortably in semi-fowlers. Pt compliant with all routine medication administration, took all PO meds whole and one by one with ease. Call light and personal items within reach. Will endorse on coming rod placer.
[2017-03-24 19:54] VITALS: BP 119/74
--- NOTE | 2017-03-24 20:00 | NUR ---
Received pt on bed alert and oriented x4. Able to make needs known. Pleasant, calm and cooperative to care. No apparent distress noted. Denies pain. No SOB noted. Vital signs WNL. Call light placed within reach. All needs attended to promptly. will continue to monitor.
[2017-03-24] MEDS: DONEPEZIL 10 MG TABLET PO SCH (21:07)
[2017-03-24] MEDS: SIMVASTATIN 40 MG TABLET PO SCH (21:07)
--- NOTE | 2017-03-25 05:27 | NUR ---
Patient slept well comfortably during the shift. No acute distress noted. No complaints of pain or discomfort. Assisted to the bathroom as needed. All due medications given as ordered with no signs of aspiration noted. kept clean, dry and comfortable. Call light within reach. All needs attended.
[2017-03-25] MEDS: LEVOTHYROXINE SODIUM 75 MCG TABLET PO SCH (06:43)
[2017-03-25] MEDS: CHOLECALCIFEROL 1,000 UNIT TABLET PO SCH (08:37)
[2017-03-25] MEDS: FLUOXETINE HCL 20 MG CAPSULE PO SCH (08:37)
[2017-03-25] MEDS: CALCIUM CARBONATE 500 MG TABLET PO SCH (08:37)
[2017-03-25] MEDS: ASPIRIN EC 81 MG TABLET.DR PO SCH (08:38)
[2017-03-25] MEDS: CARBIDOPA/LEVODOPA 25-100MG TABLET PO SCH (08:38)
[2017-03-25] MEDS: LISINOPRIL 5 MG TABLET PO SCH (08:39)
--- NOTE | 2017-03-25 08:39 | NUR ---
pt seen on rounding. pt continues to be alert and oriented. pt showed no signs of swallowing difficulty. pt ate breakfast with no dysphagia. swallowing precautions implemented. pt got up to the restroom with assist using the walker. pt had a bm and voided. vitals stable. no signs of fever. no new injuries noted upon assessment. pt has an appointment at 1130. will be picked up by [facility]. will continue to monitor.
[2017-03-25 09:00] VITALS: BP 131/93
--- NOTE | 2017-03-25 09:50 | NUR ---
I agree Addendum: 03/25/17 at 0951 by JELENA CHIN OT Amended: Links added.
--- NOTE | 2017-03-25 11:59 | NUR ---
pt discharged at 1200. pt left with [facility]. pt given discharge instructions along with dischage summary. exitcare instructions used. pt given education about fall prevention smoking cessation and easy to read parkinson. pt verbalizes understanding. pt signed discharge summary along with belongings list. pt left will all belongings. pt also left with wheelchair from [facility]. no dmes given to patient. Md dailey stated taht he will call pharmacy to verify prescriptions. pt given copies of dc summary and belongings list. pt also given original copy of POLST and swallow precautions. pt vitals stable upon discharge.
== END 2017-03-25 13:10 | DRG 56 ==
PROVIDERS: ADMIT Physical Medicine & Rehabilitation Pain Medicine; ATTEND Physical Medicine & Rehabilitation Pain Medicine
DX: G20 Parkinson's disease (principal); G93.40 Encephalopathy, unspecified; E44.0 Moderate protein-calorie malnutrition; J44.9 Chronic obstructive pulmonary disease, unspecified; E87.1 Hypo-osmolality and hyponatremia; E78.5 Hyperlipidemia, unspecified; I10 Essential (primary) hypertension; R29.6 Repeated falls; E03.9 Hypothyroidism, unspecified; G23.1 Progressive supranuclear ophthalmoplegia [Steele-Richardson-Olszewski]
CPT/HCPCS: 36415; 85025; 92526; 92610; 97110; 97112; 97116; 97165; 97530; 97535